=== PATIENT | female | born 1960 | race Caucasian/White ===

== ENCOUNTER 2016-10-26 09:26 | Emergency (ER) | payer OTHER ==
[~2016-10-26] VITALS: Ht 162.6 cm; Wt 79.4 kg
[~2016-10-26 09:26] MED LIST: AMBIEN5 MG PO; ECO81 PO; ENALAPRIL MALE2.5 MG PO; LANTI; LANTUS SOLOS100 U/M1 SC; LOR PO; LYRICA200 MG PO; MEDDP PO; METFORMIN HCL500 MG PO; METFORMIN1000 M1 PO; MORPHINE SULFAT15 MG PO; MSIR15 PO; NITROSTAT0.4 MG SL; VENTOLIN H0.09 MG/A1 INH; VICODIN ES1 TA1 PO; ZOC20 PO
[2016-10-26 10:31] LABS: BASOPHIL % 0.5 % (0-2); PLATELET COUNT 212 x10^3mcL (130-400); RED CELL DISTRIBUTION WIDTH 12.8 % (11.5-14.5)
[2016-10-26 10:42] LABS: UA SPECIFIC GRAVITY >=1.030 (1.005-1.035); microscopic required? YES; urine erythrocyte 3+ (NEGATIVE)
[2016-10-26 11:00] LABS: CALCIUM 9.6 mg/dL (8.5-10.1); CARBON DIOXIDE 30.9 mmol/L (21-32); CHLORIDE SERUM 105 mmol/L (98-107); CREATININE SERUM 0.8 mg/dL (0.6-1.0); GFR1 > 60 mL/min; GLUCOSE SERUM 178 mg/dL (74-106); POTASSIUM SERUM 4.3 mmol/L (3.5-5.1); SODIUM SERUM 141 mmol/L (136-145)
[2016-10-26 11:05] LABS: ALBUMIN 3.4 g/dL (3.4-5.0); ALKALINE PHOSPHATASE 93 U/L (46-116); ALT/SGPT 29 U/L (14-59); AMYLASE 54 U/L (25-115); AST/SGOT 16 U/L (15-37); BILIRUBIN TOTAL 0.44 mg/dL (0.20-1.00); LIPASE 309 IU/L (73-393); TOTAL PROTEIN, SERUM 7.3 g/dL (6.4-8.2)
[2016-10-26 13:43] VITALS: BP 124/71
== END 2016-10-26 13:44 | disposition home or self-care (01) ==
LOC: ED 09:26
PROVIDERS: Emergency Medicine
DX: N30.01 Acute cystitis with hematuria (principal); M79.7 Fibromyalgia; I10 Essential (primary) hypertension; E11.9 Type 2 diabetes mellitus without complications
CPT/HCPCS: J1885; J1956; J2405

== ENCOUNTER 2017-02-13 21:17 | Emergency (ER) | payer OTHER ==
[~2017-02-13] VITALS: Ht 162.6 cm; Wt 78.9 kg
[2017-02-13 22:53] LABS: BASOPHIL % 0.3 % (0-2); PLATELET COUNT 204 x10^3mcL (130-400); RED CELL DISTRIBUTION WIDTH 13.2 % (11.5-14.5)
[2017-02-13 23:00] LABS: ALKALINE PHOSPHATASE 115 U/L (46-116); ALT/SGPT 35 U/L (14-59); AST/SGOT 21 U/L (15-37); BILIRUBIN TOTAL 0.29 mg/dL (0.20-1.00); CALCIUM 9.6 mg/dL (8.5-10.1); CARBON DIOXIDE 28.8 mmol/L (21-32); CHLORIDE SERUM 100 mmol/L (98-107); GFR1 > 60 mL/min; LIPASE 174 IU/L (73-393); POTASSIUM SERUM 4.6 mmol/L (3.5-5.1); SODIUM SERUM 136 mmol/L (136-145); TOTAL PROTEIN, SERUM 7.4 g/dL (6.4-8.2)
[2017-02-13 23:01] LABS: ALBUMIN 3.3 g/dL (3.4-5.0)
[2017-02-13 23:02] LABS: GLUCOSE SERUM 466 mg/dL (74-106)
[2017-02-14 01:21] VITALS: BP 154/95
== END 2017-02-14 01:01 | disposition home or self-care (01) ==
LOC: ED 21:17
PROVIDERS: Emergency Medicine
DX: R07.89 Other chest pain (principal); K29.70 Gastritis, unspecified, without bleeding; I10 Essential (primary) hypertension; E11.65 Type 2 diabetes mellitus with hyperglycemia; Z90.49 Acquired absence of other specified parts of digestive tract; M79.7 Fibromyalgia; G89.29 Other chronic pain
CPT/HCPCS: 82962; 83880; J1815; J1885; J3490; J7030; Q0092

== ENCOUNTER 2017-03-21 23:20 | Emergency (ER) | payer OTHER ==
[2017-03-22 03:37] VITALS: BP 141/95
== END 2017-03-22 03:37 | disposition home or self-care (01) ==
LOC: ED 23:20
DX: N39.0 Urinary tract infection, site not specified (principal); I11.0 Hypertensive heart disease with heart failure; I50.9 Heart failure, unspecified; E11.9 Type 2 diabetes mellitus without complications; Z79.4 Long term (current) use of insulin; Z79.84 Long term (current) use of oral hypoglycemic drugs
CPT/HCPCS: J1885

== ENCOUNTER 2017-04-16 01:10 | Emergency (ER) | payer OTHER ==
[2017-04-16 01:52] LABS: BASOPHIL % 1.8 % (0-2); PLATELET COUNT 222 x10^3mcL (130-400); RED CELL DISTRIBUTION WIDTH 12.1 % (11.5-14.5)
[2017-04-16 01:53] LABS: CALCIUM 8.9 mg/dL (8.5-10.1); CARBON DIOXIDE 31.5 mmol/L (21-32); CHLORIDE SERUM 97 mmol/L (98-107); CREATININE SERUM 0.8 mg/dL (0.6-1.0); GFR1 > 60 mL/min; GLUCOSE SERUM 310 mg/dL (74-106); SODIUM SERUM 135 mmol/L (136-145)
[2017-04-16 02:59] LABS: microscopic required? NO
[2017-04-16 03:14] LABS: UA SPECIFIC GRAVITY <=1.005 (1.005-1.035); urine erythrocyte NEGATIVE (NEGATIVE)
[2017-04-16 04:07] VITALS: BP 166/93
== END 2017-04-16 04:07 | disposition home or self-care (01) ==
LOC: ED 01:10
PROVIDERS: Emergency Medicine
DX: E86.0 Dehydration (principal); K11.7 Disturbances of salivary secretion; E11.9 Type 2 diabetes mellitus without complications; I11.0 Hypertensive heart disease with heart failure; I50.9 Heart failure, unspecified; M79.7 Fibromyalgia; Z79.4 Long term (current) use of insulin; Z79.84 Long term (current) use of oral hypoglycemic drugs; Z90.49 Acquired absence of other specified parts of digestive tract
CPT/HCPCS: J7030

== ENCOUNTER 2017-08-20 12:38 | Emergency (ER) | payer OTHER ==
[~2017-08-20] VITALS: Ht 162.6 cm; Wt 75.7 kg
[2017-08-20 13:54] VITALS: Ht 162.6 cm; Wt 75.7 kg
[2017-08-20 17:21] VITALS: BP 144/86
== END 2017-08-20 17:21 | disposition home or self-care (01) ==
LOC: ED 12:38
DX: S46.911A Strain of unspecified muscle, fascia and tendon at shoulder and upper arm level, right arm, initial encounter (principal); M54.12 Radiculopathy, cervical region; E11.9 Type 2 diabetes mellitus without complications; I11.0 Hypertensive heart disease with heart failure; I50.9 Heart failure, unspecified; M79.7 Fibromyalgia; Z90.49 Acquired absence of other specified parts of digestive tract; X58.XXXA Exposure to other specified factors, initial encounter; Y93.89 Activity, other specified; Y92.89 Other specified places as the place of occurrence of the external cause; Y99.8 Other external cause status

== ENCOUNTER 2018-03-17 06:52 | Inpatient (IN) | payer OTHER ==
[~2018-03-17] VITALS: Ht 162.6 cm; Wt 82.7 kg
[2018-03-17 08:39] LABS: BASOPHIL % 0.2 % (0-2); PLATELET COUNT 284 x10^3mcL (130-400); RED CELL DISTRIBUTION WIDTH 13.4 % (11.5-14.5)
[2018-03-17 09:00] LABS: CALCIUM 9.6 mg/dL (8.5-10.1); CARBON DIOXIDE 27.6 mmol/L (21-32); CHLORIDE SERUM 105 mmol/L (98-107); GFR1 > 60 mL/min; GLUCOSE SERUM 175 mg/dL (74-106); POTASSIUM SERUM 4.6 mmol/L (3.5-5.1); SODIUM SERUM 142 mmol/L (136-145)
[2018-03-17 09:04] LABS: ALBUMIN 3.4 g/dL (3.4-5.0); ALKALINE PHOSPHATASE 88 U/L (46-116); ALT/SGPT 26 U/L (14-59); AST/SGOT 17 U/L (15-37); BILIRUBIN TOTAL 0.24 mg/dL (0.20-1.00); TOTAL PROTEIN, SERUM 8.2 g/dL (6.4-8.2)
[2018-03-17 09:19] LABS: microscopic required? NO
[2018-03-17 09:24] LABS: urine erythrocyte NEGATIVE (NEGATIVE)
[2018-03-17] MEDS ORDERED: LANTUS SOLOS100 U/M1 SC (09:36)
[2018-03-17] MEDS ORDERED: NORCO1 TA2 PO (09:37)
[2018-03-17 10:32] LABS: FREE T4 1.11 ng/dL (0.76-1.46); FREE THYROXINE INDEX 2.9 ug/dL (1.4-4.5); T4(THYROXINE) 9.2 ug/dL (4.7-13.3)
[2018-03-17 10:45] LABS: CHOLESTEROL/HDL RATIO 4.9; PHOSPHOROUS 4.1 mg/dL (2.5-4.9)
[2018-03-17 10:54] LABS: T3 TOTAL 1.02 ng/mL
[2018-03-17 11:29] VITALS: Ht 162.6 cm; Wt 82.7 kg
[2018-03-17 12:08] VITALS: BP 177/94
[2018-03-17 13:02] VITALS: BP 183/93
[2018-03-17 13:18] LABS: AMPHETAMINE QUAL UR NONE DETECTED (See below)
[2018-03-17 16:34] VITALS: BP 154/80
[2018-03-17 20:55] VITALS: BP 184/87
[2018-03-17 22:19] LABS: BASOPHIL % 0.1 % (0-2); PLATELET COUNT 289 x10^3mcL (130-400); RED CELL DISTRIBUTION WIDTH 13.2 % (11.5-14.5)
[2018-03-17 22:48] VITALS: BP 171/97
[2018-03-18 00:52] VITALS: BP 116/58
[2018-03-18 06:15] VITALS: BP 151/79
[2018-03-18 09:55] VITALS: BP 111/53
[2018-03-18 13:18] VITALS: BP 130/73
[2018-03-18 14:53] LABS: BASOPHIL % 0.6 % (0-2); PLATELET COUNT 271 x10^3mcL (130-400); RED CELL DISTRIBUTION WIDTH 12.9 % (11.5-14.5)
[2018-03-18 14:55] LABS: CALCIUM 8.6 mg/dL (8.5-10.1); CARBON DIOXIDE 32.7 mmol/L (21-32); CREATININE SERUM 1.1 mg/dL (0.6-1.0); POTASSIUM SERUM 4.1 mmol/L (3.5-5.1)
[2018-03-18 16:49] VITALS: BP 168/87
[2018-03-18 21:53] VITALS: BP 155/89
[2018-03-19 05:30] VITALS: BP 139/84
[2018-03-19 07:13] LABS: BASOPHIL % 0.5 % (0-2); PLATELET COUNT 258 x10^3mcL (130-400); RED CELL DISTRIBUTION WIDTH 12.8 % (11.5-14.5)
[2018-03-19 07:58] LABS: CALCIUM 8.7 mg/dL (8.5-10.1); CARBON DIOXIDE 29.1 mmol/L (21-32); CREATININE SERUM 1.1 mg/dL (0.6-1.0); MAGNESIUM 1.8 mg/dL (1.8-2.4); PHOSPHOROUS 3.5 mg/dL (2.5-4.9); POTASSIUM SERUM 4.3 mmol/L (3.5-5.1)
[2018-03-19 09:40] VITALS: BP 164/85
[2018-03-19 17:30] VITALS: BP 175/92
[2018-03-19 20:26] VITALS: BP 167/85
[2018-03-20 05:14] VITALS: BP 167/71
[2018-03-20 07:25] LABS: BASOPHIL % 0.2 % (0-2); PLATELET COUNT 239 x10^3mcL (130-400); RED CELL DISTRIBUTION WIDTH 12.8 % (11.5-14.5)
[2018-03-20 07:55] LABS: CALCIUM 8.8 mg/dL (8.5-10.1); CARBON DIOXIDE 26.3 mmol/L (21-32); CREATININE SERUM 3.3 mg/dL (0.6-1.0); POTASSIUM SERUM 4.1 mmol/L (3.5-5.1)
[2018-03-20 09:15] VITALS: BP 182/84
[2018-03-20 11:11] LABS: BILIRUBIN DIRECT 0.22 mg/dL (0.0-0.2); BILIRUBIN TOTAL 0.7 mg/dL (0.20-1.00); TOTAL PROTEIN, SERUM 7.4 g/dL (6.4-8.2)
[2018-03-20 11:12] LABS: ALBUMIN 2.8 g/dL (3.4-5.0)
[2018-03-20 16:18] VITALS: BP 147/81
[2018-03-20 19:01] LABS: UA SPECIFIC GRAVITY <=1.005 (1.005-1.035); microscopic required? YES; urine erythrocyte 1+ (NEGATIVE)
[2018-03-20 20:59] VITALS: BP 160/71
[2018-03-21 05:26] VITALS: BP 130/67
[2018-03-21 06:44] LABS: BASOPHIL % 0.3 % (0-2); PLATELET COUNT 246 x10^3mcL (130-400); RED CELL DISTRIBUTION WIDTH 12.9 % (11.5-14.5)
[2018-03-21 06:53] LABS: CALCIUM 8.8 mg/dL (8.5-10.1); POTASSIUM SERUM 3.8 mmol/L (3.5-5.1)
[2018-03-21 06:55] LABS: PHOSPHOROUS 4.4 mg/dL (2.5-4.9)
[2018-03-21 06:59] LABS: CREATININE SERUM 4.7 mg/dL (0.6-1.0)
[2018-03-21 09:36] VITALS: BP 170/88
[2018-03-21 16:36] VITALS: BP 161/79
[2018-03-21 20:11] VITALS: BP 167/77
[2018-03-22 05:33] VITALS: BP 149/72
[2018-03-22 06:11] LABS: CALCIUM 8.9 mg/dL (8.5-10.1); PHOSPHOROUS 4.5 mg/dL (2.5-4.9); POTASSIUM SERUM 4.1 mmol/L (3.5-5.1)
[2018-03-22 06:14] LABS: CREATININE SERUM 5.1 mg/dL (0.6-1.0)
[2018-03-22 06:20] LABS: BASOPHIL % 0.3 % (0-2); PLATELET COUNT 256 x10^3mcL (130-400); RED CELL DISTRIBUTION WIDTH 12.7 % (11.5-14.5)
[2018-03-22 09:19] VITALS: BP 175/91
[2018-03-22 12:34] LABS: microalbumin:creatinine ratio 240.6 (0.0-30.0)
[2018-03-22 16:59] VITALS: BP 176/93
[2018-03-22 18:57] VITALS: BP 161/93
[2018-03-22 20:10] VITALS: BP 161/85
[2018-03-23 06:41] LABS: PHOSPHOROUS 4.6 mg/dL (2.5-4.9); POTASSIUM SERUM 4.1 mmol/L (3.5-5.1)
[2018-03-23 06:53] LABS: CREATININE SERUM 5.1 mg/dL (0.6-1.0)
[2018-03-23 06:54] LABS: BASOPHIL % 0.3 % (0-2); PLATELET COUNT 262 x10^3mcL (130-400)
[2018-03-23 07:03] VITALS: BP 167/84
[2018-03-23 09:01] VITALS: BP 154/79
[2018-03-23 12:47] VITALS: BP 148/77
[2018-03-23 17:17] VITALS: BP 151/71
[2018-03-23 20:23] VITALS: BP 153/72
[2018-03-24 05:42] LABS: CALCIUM 8.8 mg/dL (8.5-10.1); CARBON DIOXIDE 21.6 mmol/L (21-32)
[2018-03-24 05:43] VITALS: BP 140/68
[2018-03-24 05:44] LABS: CREATININE SERUM 4.6 mg/dL (0.6-1.0)
[2018-03-24 07:48] LABS: BASOPHIL % 0.3 % (0-2); PLATELET COUNT 270 x10^3mcL (130-400); RED CELL DISTRIBUTION WIDTH 13.5 % (11.5-14.5)
[2018-03-24 09:57] VITALS: BP 156/71
[2018-03-24] MEDS ORDERED: APR25 PO (10:24)
[2018-03-24] MEDS ORDERED: LAC PO (10:24)
[2018-03-24] MEDS ORDERED: METOPROLOL TART25 M1 PO (10:24)
[2018-03-24] MEDS ORDERED: NOR10 PO (10:24)
[2018-03-24] MEDS ORDERED: FLA500 PO (10:25)
[2018-03-24] MEDS ORDERED: LEVAQUIN500 M1 PO (10:25)
[2018-03-24] MEDS ORDERED: VANCOCIN125 MG PO (10:26)
[2018-03-24 11:23] VITALS: BP 156/71
== END 2018-03-24 12:40 | disposition home or self-care (01) | DRG 853 ==
LOC: ED 06:52 → DU 09:27 → MU 09:27 → DU 11:21 → MU 03-18 09:35 → DU 03-23 04:52 → MU 03-23 18:00
PROVIDERS: Anesthesiology; Emergency Medicine; Family Medicine; Internal Medicine; Internal Medicine Nephrology; Nutritionist Nutrition, Education; Podiatrist Foot & Ankle Surgery
PROC: 0JBR0ZZ Excision of Left Foot Subcutaneous Tissue and Fascia, Open Approach (ICD-10-PCS; 2018-03-17)
PROC: 0Y6U0Z0 Detachment at Left 3rd Toe, Complete, Open Approach (ICD-10-PCS; principal; 2018-03-18 08:00)
DX: A41.9 Sepsis, unspecified organism (principal); N17.0 Acute kidney failure with tubular necrosis; E11.52 Type 2 diabetes mellitus with diabetic peripheral angiopathy with gangrene; B02.29 Other postherpetic nervous system involvement; D68.69 Other thrombophilia; N39.0 Urinary tract infection, site not specified; J98.11 Atelectasis; E11.621 Type 2 diabetes mellitus with foot ulcer; L03.032 Cellulitis of left toe; E11.65 Type 2 diabetes mellitus with hyperglycemia; E11.42 Type 2 diabetes mellitus with diabetic polyneuropathy; L97.521 Non-pressure chronic ulcer of other part of left foot limited to breakdown of skin; M79.7 Fibromyalgia; E78.5 Hyperlipidemia, unspecified; E66.9 Obesity, unspecified; I10 Essential (primary) hypertension; Z68.30 Body mass index [BMI] 30.0-30.9, adult; Z79.4 Long term (current) use of insulin; Z79.84 Long term (current) use of oral hypoglycemic drugs
CPT/HCPCS: 82962; 83880; 84439; 97110-GP; 97116-GP; 97530-GP; 97535-GP; C1760; C1769; C1887; C1894; C9113; J0696; J1956; J2270; J2405; J2543; J2704; J3010; J3370; J3490; J7030; J7050; Q0092; Q0162

== ENCOUNTER 2018-04-01 23:38 | Emergency (ER) | payer OTHER ==
[~2018-04-01] VITALS: Ht 162.6 cm; Wt 79.4 kg
[~2018-04-01 23:38] MED LIST changes: +APR25 PO; +FLA500 PO; +LAC PO; +LEVAQUIN500 M1 PO; +METOPROLOL TART25 M1 PO; +NOR10 PO; +NORCO1 TA2 PO; +VANCOCIN125 MG PO
[2018-04-01 23:44] VITALS: Ht 162.6 cm; Wt 79.4 kg
[2018-04-02 01:15] VITALS: BP 203/96
== END 2018-04-02 01:15 | disposition home or self-care (01) ==
LOC: ED 23:38
DX: S46.911D Strain of unspecified muscle, fascia and tendon at shoulder and upper arm level, right arm, subsequent encounter (principal); I11.0 Hypertensive heart disease with heart failure; I50.9 Heart failure, unspecified; E11.9 Type 2 diabetes mellitus without complications; M79.7 Fibromyalgia; G90.09 Other idiopathic peripheral autonomic neuropathy; Z90.49 Acquired absence of other specified parts of digestive tract; W01.0XXD Fall on same level from slipping, tripping and stumbling without subsequent striking against object, subsequent encounter
CPT/HCPCS: Q0092

== ENCOUNTER 2018-04-16 10:19 | Emergency (ER) | payer OTHER ==
[~2018-04-16] VITALS: Ht 162.6 cm; Wt 79.8 kg
[2018-04-16 10:25] VITALS: Ht 162.6 cm; Wt 79.8 kg
[2018-04-16 11:08] LABS: BASOPHIL % 0.6 % (0-2); PLATELET COUNT 273 x10^3mcL (130-400); RED CELL DISTRIBUTION WIDTH 12.9 % (11.5-14.5)
[2018-04-16 11:19] LABS: CALCIUM 10.1 mg/dL (8.5-10.1); CARBON DIOXIDE 31.9 mmol/L (21-32); CREATININE SERUM 1.6 mg/dL (0.6-1.0); POTASSIUM SERUM 4.4 mmol/L (3.5-5.1)
[2018-04-16 11:23] LABS: ALBUMIN 3.8 g/dL (3.4-5.0); BILIRUBIN TOTAL 0.4 mg/dL (0.20-1.00)
[2018-04-16 11:25] LABS: TOTAL PROTEIN, SERUM 9.4 g/dL (6.4-8.2)
[2018-04-16 12:38] LABS: microscopic required? YES; urine erythrocyte NEGATIVE (NEGATIVE)
[2018-04-16 14:45] VITALS: BP 141/89
== END 2018-04-16 14:45 | disposition left against medical advice (07) ==
LOC: ED 10:19 → MU 12:45 → ED 14:45
PROVIDERS: Emergency Medicine
DX: R53.1 Weakness (principal); E11.22 Type 2 diabetes mellitus with diabetic chronic kidney disease; I12.9 Hypertensive chronic kidney disease with stage 1 through stage 4 chronic kidney disease, or unspecified chronic kidney disease; N18.9 Chronic kidney disease, unspecified; I50.9 Heart failure, unspecified; E11.40 Type 2 diabetes mellitus with diabetic neuropathy, unspecified
CPT/HCPCS: J2060; J2405; J3490; J7030; Q0092

== ENCOUNTER 2018-11-20 15:09 | Inpatient (IN) | payer OTHER ==
[~2018-11-20] VITALS: Ht 162.6 cm; Wt 81.6 kg
[2018-11-20 15:49] VITALS: Ht 162.6 cm; Wt 81.6 kg
--- NOTE | 2018-11-20 16:33 | NUR ---
TO BED 12 VIA WHEELCHAIR. PT HERE FOR EVAL FOR NON-HEALING OPEN WOUND @ FOOT, AND GANGRENE @ R 5TH TOE. PT STATES NON-HEALING OPEN WOUND TO R FOOT SINCE 10/24/18.
--- NOTE | 2018-11-20 16:34 | NUR ---
PT SEEN BY DR. MONTES.
--- NOTE | 2018-11-20 16:38 | NUR ---
PAID SEARCH MARKETING STRATEGIST AT BEDSIDE.
[2018-11-20 16:56] LABS: BASOPHIL % 0.2 % (0-2); PLATELET COUNT 321 x10^3mcL (130-400); RED CELL DISTRIBUTION WIDTH 12.8 % (11.5-14.5)
[2018-11-20 17:16] LABS: CALCIUM 9.2 mg/dL (8.5-10.1); CARBON DIOXIDE 27.9 mmol/L (21-32); CREATININE SERUM 1.1 mg/dL (0.6-1.0); POTASSIUM SERUM 3.8 mmol/L (3.5-5.1)
[2018-11-20 17:28] LABS: BILIRUBIN TOTAL 0.49 mg/dL (0.20-1.00); T4(THYROXINE) 9.4 ug/dL (4.7-13.3)
[2018-11-20 17:30] LABS: ALBUMIN 2.9 g/dL (3.4-5.0); TOTAL PROTEIN, SERUM 8.3 g/dL (6.4-8.2)
[2018-11-20] MEDS ORDERED: LIPI10 PO (17:34)
[2018-11-20] MEDS ORDERED: ENALAPRIL MALEAT5 MG PO (17:35)
[2018-11-20] MEDS ORDERED: VITAMIN D50000 I4 PO (17:35)
[2018-11-20] MEDS ORDERED: LANTUS SOLOS100 U/M1 (17:37)
[2018-11-20] MEDS ORDERED: METFORMIN HCL500 MG PO (17:40)
[2018-11-20] MEDS ORDERED: APAP/HYDROCODON1 T13 PO (17:40)
--- NOTE | 2018-11-20 17:44 | NUR ---
PT EATING DINNER, AWAKE, ALERT, BS=64 AT THIS TIME. MD JYOTI HARPER.
--- NOTE | 2018-11-20 17:55 | NUR ---
MOLDING ENGINEER AT BEDSIDE AND HAD PT SIGN CONSENT FOR SURGERY, WITNESSED PT'S SIGNATURE.
--- NOTE | 2018-11-20 18:27 | NUR ---
REPORT GIVEN TO GIDEON GOMEZ. PT AWAKE, ALERT, STATES NO MORE PAIN AT THIS TIME. NSR ON PICTURE FRAMER.
[2018-11-20 19:01] VITALS: BP 181/88
--- NOTE | 2018-11-20 19:37 | NUR ---
RECEIVED PT FROM ER. PT ADMIT FOR RIGHT FIFTH TOE GANGRENE, PT IS A/O X4, VERBAL RESPONSIVE, ABLE TO TELL WHAT SHE NEEDS. LUNG SOUND CLEAR BIALTERAL, NO COUHG, NO SOB, PO2 100% IN ROOM AIR, PT DENY ANY CHEST PAIN OR DISCOMFORT, BOWEL SOUND PRESENT ALL 4 QUADRANTS, NO DISTENTION, NO TENDER. PEDAL PULSE PRESENT BOTH FEET, RIGHT FIFTH TOE BLACK DISCOLORATION AND SOLE UNDER FIFTH TOE OPEN WOUND, IV AT LEFT FA, NO LEAKING, NO INFITLRATION. ALL ADLS ASSIST, ALL NEED MET, CALL LIGHT IN REACH, WILL CONTINUE TO MONITOR.
--- NOTE | 2018-11-20 20:00 | NUR ---
PT IS A/O x4. MED SURG. DENIES ANY CHEST PAIN OR PRESSURE. PULSES ARE PRESENT. NO EDEMA NOTED. DRESSING ON R FOOT IS CLEAN AND INTACT. NO DRAINAGE NOTED. LUNGS CLEAR IN ALL FEILDS. ON RA, DENIES ANY SOB. EQUAL CHEST RISE AND FALL. BOWEL SOUNDS PRESENT x4. DENIES ANY ABD DISTRESS. DENIES PAIN AT THIS TIME. IV ON LFA, INTACT AND PATENT. FAMILY AT BEDSIDE. BED AT LOWEST SETTING. CALL LIGHT WITHIN REACH. WILL CONTINUE TO MONTIOR.
--- NOTE | 2018-11-21 02:25 | NUR ---
PT IS RESTING IN BED. C/O PAIN 5/10 ON R FOOT. STATES IT PULSES AND NON RADITATING. WILL GIVE PRN NORCO PER EMAR. WILL CONTINUE TO MONITOR.
[2018-11-21 02:34] LABS: UA SPECIFIC GRAVITY 1.015 (1.005-1.035)
[2018-11-21 02:35] LABS: microscopic required? YES; urine erythrocyte TRACE (NEGATIVE)
[2018-11-21 06:03] VITALS: BP 148/79
--- NOTE | 2018-11-21 06:52 | NUR ---
PT IS RESTING IN BED WITH BOTH EYES CLOSED. NO SIGN OF DISTRESS NOTED. NO ACUTE EVENT OCCURED AT NIGHT. PT BEEN NPO SINCE MIDNIGHT. CHECK LIST HAS BEEN STARTED. BED IS AT LOWEST SETTING. CALL LIGHT WITHIN REACH. WILL ENDORSE TO AM NURSE.
[2018-11-21 07:08] LABS: CARBON DIOXIDE 26.1 mmol/L (21-32); CREATININE SERUM 1.3 mg/dL (0.6-1.0); MAGNESIUM 1.6 mg/dL (1.8-2.4); PHOSPHOROUS 3.9 mg/dL (2.5-4.9); POTASSIUM SERUM 4.5 mmol/L (3.5-5.1)
[2018-11-21 07:24] LABS: BASOPHIL % 0.2 % (0-2); PLATELET COUNT 287 x10^3mcL (130-400); RED CELL DISTRIBUTION WIDTH 13.1 % (11.5-14.5)
--- NOTE | 2018-11-21 08:23 | NUR ---
AAO TIMES 4. LUNGS CTA. NO SOB. O2 SAT ON RA 96%. BS'S ACTIVE TIMES 4. NPO. PERIPHERAL PULSES PALPABLE. BRANTLEY STRONG. RIGHT LATERAL TOP OF FOOT WITH SLIGHT EDEMA AND ERYTHEMA. IV SITE CDI. COOPERATIVE AND PLEASANT. NO C/O PAIN.
[2018-11-21 09:29] VITALS: BP 144/76
[2018-11-21 17:05] VITALS: BP 118/56
--- NOTE | 2018-11-21 17:54 | NUR ---
AAO TIMES 4. MED SURG. DRESSING TO RLE CDI. COOPERATIVE. IV SITE CDI. NO C/O PAIN AT THIS TIME. NO SOB. FAMILY AT BEDSIDE MOST OF DAY.
--- NOTE | 2018-11-21 19:30 | NUR ---
PT IS A/O X4. ON MED SURG. DENIES ANY CHEST PAIN OR PRESSURE. PULSES ARE PRESENT. SLIGHT EDEMA NOTED ON R FOOT D/T POST OP 5TH RIGHT TOE AMPUTATION. FOOT ELEVATED ON A PILLOW. LUNGS CLEAR IN ALL FEILDS. NO SIGN OF RESP DISTRESS. EQUAL CHEST RISE AND FALL. ON RA. BOWEL SOUNDS PRESENT x4. DENIES ANY ABD DISTRESS. DRESSING ON R FOOT IS CLEAN AND INTACT. NO DRAINAGE NOTED. DENIES ANY PAIN. IV ON LFA INTACT AND PATENT. NO SIGN OF INFILTRATION OR IRRITATION NOTED. BED IS AT LOWEST SETTING. CALL LIGHT WITHIN REACH. PARTNER AT BEDSIDE. WILL CONTINUE TO MONTIOR.
[2018-11-21 21:34] VITALS: BP 173/85
--- NOTE | 2018-11-22 01:07 | NUR ---
PT IS RESTING IN BED. ASSISTED PT TO THE BATHROOM. PT WALKED ON HER R HEEL TO THE BATHROOM AND BACK TO THE BED, TOLERATED THE WALK WELL. PT DENIES ANY PAIN. CALL LIGHT WITHIN REACH. WILL CONTINUE TO MONITOR.
[2018-11-22 06:08] VITALS: BP 176/89
[2018-11-22 06:23] LABS: BASOPHIL % 0.1 % (0-2); PLATELET COUNT 297 x10^3mcL (130-400); RED CELL DISTRIBUTION WIDTH 13.1 % (11.5-14.5)
[2018-11-22 06:37] LABS: CALCIUM 8.8 mg/dL (8.5-10.1); CARBON DIOXIDE 26.3 mmol/L (21-32); CREATININE SERUM 1.2 mg/dL (0.6-1.0); POTASSIUM SERUM 4.7 mmol/L (3.5-5.1)
--- NOTE | 2018-11-22 06:45 | NUR ---
PT IS RESTING IN BED. DENIES ANY PAIN OR DISTRESS. NO ACUTE EVENT OCCURED AT NIGHT. DRESSING ON R FOOT IS CLEAN AND INTACT. BED IS AT LOWEST SETTING. CALL LIGHT WITHIN REACH. WILL ENDORSE TO AM NURSE.
--- NOTE | 2018-11-22 07:50 | NUR ---
AWAKE ALERT AND ORIENTED.DENIES ANY PAIN AT THIS TIME. S/P RT. 5TH TOE AMPUTEE 11/21 .DRESSING CDI .ABLE TO GET OUT IN BSC VOIDING WELL.CONT,. IV FLUIDS AND IV ANTIBIOTIC ORDERED.WILL CONT. PLAN OF CARE.
[2018-11-22 08:39] VITALS: BP 110/68
--- NOTE | 2018-11-22 09:00 | NUR ---
ANTOLIN NURSE PRACTITIONER HERE AND SEEN THE PT. W/ ORDERS OK PT. TO GO HOME TODAY PT. MADE AWARE AND AWAITING FOR RIDE.
[2018-11-22] MEDS ORDERED: KEFLEX500 M1 PO (10:00)
[2018-11-22 13:02] VITALS: BP 110/68
--- NOTE | 2018-11-22 13:20 | NUR ---
PT. C/O PAIN IN FOOT MEDICATED FOR PAIN ORDERED LEMOYNE. MADE PT. COMFORTABLE IN BED.,
--- NOTE | 2018-11-22 13:58 | NUR ---
PT. WENT HOME W/ STABLE CONDITION PER W/C ACC. W/ HER .DISCHARGED INSTRUCTIONS AND PRESCRIPTIONS GIVEN AND DISCUSED TO PT. AND VERBALIZED UNDERSTANDING OF INSTRUCTION GIVEN NO ACUTE DISTRESS NOTED.ESCORTED BY MARISSA IN THE LOBBY.
== END 2018-11-22 13:57 | disposition home or self-care (01) | DRG 240 ==
LOC: ED 15:09 → MU 16:10
PROVIDERS: Emergency Medicine; Podiatrist Foot & Ankle Surgery; ADMIT Internal Medicine
PROC: 0Y6M0ZF Detachment at Right Foot, Partial 5th Ray, Open Approach (ICD-10-PCS; principal; 2018-11-21 12:00)
DX: E10.52 Type 1 diabetes mellitus with diabetic peripheral angiopathy with gangrene (principal); L97.411 Non-pressure chronic ulcer of right heel and midfoot limited to breakdown of skin; I96 Gangrene, not elsewhere classified; M86.9 Osteomyelitis, unspecified; B02.29 Other postherpetic nervous system involvement; M86.171 Other acute osteomyelitis, right ankle and foot; E10.621 Type 1 diabetes mellitus with foot ulcer; L03.031 Cellulitis of right toe; E10.69 Type 1 diabetes mellitus with other specified complication; E10.42 Type 1 diabetes mellitus with diabetic polyneuropathy; E10.319 Type 1 diabetes mellitus with unspecified diabetic retinopathy without macular edema; E10.65 Type 1 diabetes mellitus with hyperglycemia; B35.1 Tinea unguium; I10 Essential (primary) hypertension; M79.7 Fibromyalgia; Z79.4 Long term (current) use of insulin; Z79.84 Long term (current) use of oral hypoglycemic drugs
CPT/HCPCS: 82962; 83880; C9113; J0295; J2270; J2543; J3010; J3370; J3475; J3490; J7030; Q0092

== ENCOUNTER 2019-01-07 10:23 | Inpatient (IN) | payer OTHER ==
[~2019-01-07] VITALS: Ht 157.5 cm; Wt 81.6 kg
[~2019-01-07 10:23] MED LIST changes: +APAP/HYDROCODON1 T13 PO; +ENALAPRIL MALEAT5 MG PO; +KEFLEX500 M1 PO; +LANTUS SOLOS100 U/M1; +LIPI10 PO; +VITAMIN D50000 I4 PO
[2019-01-07] MEDS ORDERED: LANTUS100 U/ML SC (11:17)
[2019-01-07] MEDS ORDERED: MOT800 PO (11:18)
[2019-01-07] MEDS ORDERED: NORCO1 TA2 PO (11:18)
[2019-01-07 12:20] LABS: BASOPHIL % 0.3 % (0-2); PLATELET COUNT 360 x10^3mcL (130-400)
[2019-01-07 12:30] LABS: CALCIUM 9.8 mg/dL (8.5-10.1); CREATININE SERUM 1.5 mg/dL (0.6-1.0)
[2019-01-07 12:35] LABS: BILIRUBIN TOTAL 0.27 mg/dL (0.20-1.00); TOTAL PROTEIN, SERUM 8.9 g/dL (6.4-8.2)
[2019-01-07 13:27] LABS: MAGNESIUM 1.8 mg/dL (1.8-2.4)
[2019-01-07 14:30] VITALS: BP 116/74
[2019-01-07 21:01] VITALS: BP 130/72
[2019-01-08 05:26] VITALS: BP 171/89
[2019-01-08 06:25] LABS: PLATELET COUNT 337 x10^3mcL (130-400)
[2019-01-08 06:37] LABS: CALCIUM 9.7 mg/dL (8.5-10.1); CREATININE SERUM 1.3 mg/dL (0.6-1.0); POTASSIUM SERUM 5.3 mmol/L (3.5-5.1)
[2019-01-08 06:43] LABS: BASOPHIL % 0 % (0-2)
[2019-01-08 07:58] VITALS: BP 164/79
[2019-01-08 08:20] VITALS: BP 130/71
[2019-01-08 14:19] LABS: microscopic required? YES; urine erythrocyte NEGATIVE (NEGATIVE)
[2019-01-08 16:31] VITALS: BP 140/73
[2019-01-08 19:53] VITALS: BP 177/93
[2019-01-08 22:00] VITALS: BP 145/72
[2019-01-09] VITALS (7 sets, daily range): BP systolic 131–191; BP diastolic 67–100
[2019-01-09 07:15] LABS: BASOPHIL % 0.5 % (0-2); PLATELET COUNT 299 x10^3mcL (130-400); RED CELL DISTRIBUTION WIDTH 14.6 % (11.5-14.5)
[2019-01-09 07:31] LABS: CALCIUM 9.9 mg/dL (8.5-10.1); CARBON DIOXIDE 26.1 mmol/L (21-32); CREATININE SERUM 1.2 mg/dL (0.6-1.0)
[2019-01-10 00:30] VITALS: BP 175/82
[2019-01-10 00:36] VITALS: Ht 157.5 cm; Wt 81.6 kg
[2019-01-10 01:56] VITALS: BP 140/72
[2019-01-10 04:37] VITALS: BP 167/87
[2019-01-10 07:07] LABS: BASOPHIL % 0.5 % (0-2); PLATELET COUNT 302 x10^3mcL (130-400); RED CELL DISTRIBUTION WIDTH 14.1 % (11.5-14.5)
[2019-01-10 07:47] LABS: CALCIUM 9.7 mg/dL (8.5-10.1); CARBON DIOXIDE 27.6 mmol/L (21-32); CREATININE SERUM 1.1 mg/dL (0.6-1.0); POTASSIUM SERUM 4.2 mmol/L (3.5-5.1)
[2019-01-10 09:09] VITALS: BP 155/72
[2019-01-10 15:31] LABS: BASOPHIL % 0.1 % (0-2); PLATELET COUNT 294 x10^3mcL (130-400); RED CELL DISTRIBUTION WIDTH 14.1 % (11.5-14.5)
[2019-01-10 17:11] VITALS: BP 117/86
[2019-01-10 20:55] VITALS: BP 147/84
[2019-01-11 05:09] VITALS: BP 134/73
[2019-01-11 07:05] LABS: CALCIUM 9.6 mg/dL (8.5-10.1); CARBON DIOXIDE 24.8 mmol/L (21-32); CREATININE SERUM 1.6 mg/dL (0.6-1.0); POTASSIUM SERUM 4.4 mmol/L (3.5-5.1)
[2019-01-11 07:32] LABS: BASOPHIL % 0.2 % (0-2); PLATELET COUNT 278 x10^3mcL (130-400); RED CELL DISTRIBUTION WIDTH 14.3 % (11.5-14.5)
[2019-01-11 09:38] VITALS: BP 119/71
[2019-01-11 17:41] VITALS: BP 133/68
[2019-01-11 20:27] VITALS: BP 113/62
[2019-01-12 05:39] VITALS: BP 159/82
[2019-01-12 08:34] LABS: BASOPHIL % 0.3 % (0-2); PLATELET COUNT 271 x10^3mcL (130-400)
[2019-01-12 08:39] LABS: RED CELL DISTRIBUTION WIDTH 14.8 % (11.5-14.5)
[2019-01-12 08:46] LABS: CALCIUM 9.2 mg/dL (8.5-10.1); CREATININE SERUM 1.7 mg/dL (0.6-1.0)
[2019-01-12 09:45] VITALS: BP 120/64
[2019-01-12 17:28] VITALS: BP 145/80
[2019-01-12 22:57] VITALS: BP 174/87
[2019-01-13 06:38] VITALS: BP 158/77
[2019-01-13 07:40] LABS: BASOPHIL % 0.3 % (0-2); PLATELET COUNT 272 x10^3mcL (130-400)
[2019-01-13 08:01] VITALS: BP 143/71
[2019-01-13 08:15] LABS: RED CELL DISTRIBUTION WIDTH 14.7 % (11.5-14.5)
[2019-01-13 08:20] LABS: CALCIUM 9.5 mg/dL (8.5-10.1); CARBON DIOXIDE 24.5 mmol/L (21-32); CREATININE SERUM 1.7 mg/dL (0.6-1.0); POTASSIUM SERUM 4.4 mmol/L (3.5-5.1)
[2019-01-13] MEDS ORDERED: BACDS PO (12:57)
[2019-01-13 13:57] VITALS: BP 143/71
== END 2019-01-13 15:00 | disposition home or self-care (01) | DRG 474 ==
LOC: ED 10:23 → MU 12:31
PROVIDERS: Emergency Medicine; Nutritionist Nutrition, Education; ADMIT General Practice
PROC: 0Y6M0ZD Detachment at Right Foot, Partial 4th Ray, Open Approach (ICD-10-PCS; 2019-01-10)
PROC: 0Y6M0ZF Detachment at Right Foot, Partial 5th Ray, Open Approach (ICD-10-PCS; 2019-01-10)
PROC: 0L8P0ZZ Division of Left Lower Leg Tendon, Open Approach (ICD-10-PCS; 2019-01-10)
PROC: 0Y6M0ZC Detachment at Right Foot, Partial 3rd Ray, Open Approach (ICD-10-PCS; principal; 2019-01-10 12:00)
DX: T87.43 Infection of amputation stump, right lower extremity (principal); N17.0 Acute kidney failure with tubular necrosis; M86.9 Osteomyelitis, unspecified; E44.0 Moderate protein-calorie malnutrition; T87.81 Dehiscence of amputation stump; E11.42 Type 2 diabetes mellitus with diabetic polyneuropathy; E11.69 Type 2 diabetes mellitus with other specified complication; E11.65 Type 2 diabetes mellitus with hyperglycemia; M79.7 Fibromyalgia; B99.9 Unspecified infectious disease; E78.5 Hyperlipidemia, unspecified; I10 Essential (primary) hypertension; Z79.4 Long term (current) use of insulin; Z89.422 Acquired absence of other left toe(s); Z89.421 Acquired absence of other right toe(s); Z68.32 Body mass index [BMI] 32.0-32.9, adult; Z79.84 Long term (current) use of oral hypoglycemic drugs
CPT/HCPCS: 82962; 97112-GP; 97116-GP; 97530-GP; G0378; J0360; J1170; J2270; J2405; J2543; J2704; J2765; J3010; J3370; J3490; J7030; J7120; Q0092

== ENCOUNTER 2019-07-19 15:37 | Emergency (ER) | payer OTHER ==
[~2019-07-19] VITALS: Ht 162.6 cm; Wt 77.1 kg
[~2019-07-19 15:37] MED LIST changes: +BACDS PO; +LANTUS100 U/ML SC; +MOT800 PO
[2019-07-19 16:06] VITALS: Ht 162.6 cm; Wt 77.1 kg
[2019-07-19 18:47] VITALS: BP 118/67
== END 2019-07-19 18:40 | disposition home or self-care (01) ==
LOC: ED 15:37
DX: M54.12 Radiculopathy, cervical region (principal); R51 Headache; I50.9 Heart failure, unspecified; I11.0 Hypertensive heart disease with heart failure; M79.7 Fibromyalgia; E11.319 Type 2 diabetes mellitus with unspecified diabetic retinopathy without macular edema; Z90.49 Acquired absence of other specified parts of digestive tract; Z89.421 Acquired absence of other right toe(s)
CPT/HCPCS: J2270; Q0162

== ENCOUNTER 2019-08-11 00:06 | Emergency (ER) | payer OTHER ==
[~2019-08-11] VITALS: Ht 162.6 cm; Wt 79.4 kg
[2019-08-11 00:15] VITALS: Ht 162.6 cm; Wt 79.4 kg
[2019-08-11 01:28] VITALS: BP 148/86
== END 2019-08-11 01:28 | disposition home or self-care (01) ==
LOC: ED 00:06
DX: M75.31 Calcific tendinitis of right shoulder (principal); I11.0 Hypertensive heart disease with heart failure; I50.9 Heart failure, unspecified; M79.7 Fibromyalgia; E11.40 Type 2 diabetes mellitus with diabetic neuropathy, unspecified; Z90.49 Acquired absence of other specified parts of digestive tract; Z89.421 Acquired absence of other right toe(s); Z89.422 Acquired absence of other left toe(s)
CPT/HCPCS: 20552; J2001; J3301; J3490

== ENCOUNTER 2019-08-28 14:49 | Emergency (ER) | payer OTHER ==
[~2019-08-28] VITALS: Ht 167.6 cm; Wt 108.9 kg
[2019-08-28 15:06] VITALS: Ht 167.6 cm; Wt 108.9 kg
[2019-08-28 17:42] LABS: BASOPHIL % 0.2 % (0-2); PLATELET COUNT 234 x10^3mcL (130-400); RED CELL DISTRIBUTION WIDTH 13.5 % (11.5-14.5)
[2019-08-28 17:59] LABS: CALCIUM 9.7 mg/dL (8.5-10.1); CARBON DIOXIDE 27.6 mmol/L (21-32); CREATININE SERUM 1.1 mg/dL (0.6-1.0)
[2019-08-28 18:05] LABS: BILIRUBIN TOTAL 0.62 mg/dL (0.20-1.00); TOTAL PROTEIN, SERUM 7.9 g/dL (6.4-8.2)
[2019-08-28 18:08] LABS: ALBUMIN 3.1 g/dL (3.4-5.0)
[2019-08-28 21:13] VITALS: BP 173/85
== END 2019-08-28 21:13 | disposition home or self-care (01) ==
LOC: ED 14:49
PROVIDERS: Emergency Medicine
DX: R11.2 Nausea with vomiting, unspecified (principal); I11.0 Hypertensive heart disease with heart failure; I50.9 Heart failure, unspecified; E11.9 Type 2 diabetes mellitus without complications; Z98.890 Other specified postprocedural states; Z90.49 Acquired absence of other specified parts of digestive tract
CPT/HCPCS: J0360; J1885; J2270; J2405; J7030

== ENCOUNTER 2019-09-09 22:45 | Emergency (ER) | payer OTHER ==
[~2019-09-09] VITALS: Ht 162.6 cm; Wt 77.1 kg
[2019-09-09 22:53] VITALS: Ht 162.6 cm; Wt 77.1 kg
[2019-09-10 00:55] LABS: BASOPHIL % 0.3 % (0-2); PLATELET COUNT 266 x10^3mcL (130-400); RED CELL DISTRIBUTION WIDTH 12.6 % (11.5-14.5)
[2019-09-10 01:05] LABS: CALCIUM 9.4 mg/dL (8.5-10.1); CARBON DIOXIDE 29.2 mmol/L (21-32); CREATININE SERUM 1.2 mg/dL (0.6-1.0); POTASSIUM SERUM 3.5 mmol/L (3.5-5.1)
[2019-09-10 01:14] LABS: BILIRUBIN TOTAL 0.7 mg/dL (0.20-1.00); TOTAL PROTEIN, SERUM 7.8 g/dL (6.4-8.2)
[2019-09-10 01:15] LABS: ALBUMIN 3.3 g/dL (3.4-5.0)
[2019-09-10 02:03] VITALS: BP 165/88
== END 2019-09-10 03:21 | disposition home or self-care (01) ==
LOC: ED 22:45
PROVIDERS: Emergency Medicine
DX: R11.2 Nausea with vomiting, unspecified (principal); I50.9 Heart failure, unspecified; I10 Essential (primary) hypertension; E11.319 Type 2 diabetes mellitus with unspecified diabetic retinopathy without macular edema; Z90.49 Acquired absence of other specified parts of digestive tract; Z89.422 Acquired absence of other left toe(s)
CPT/HCPCS: J0360; J2405; J7030

== ENCOUNTER 2020-04-15 12:58 | Emergency (ER) | payer OTHER ==
[~2020-04-15] VITALS: Ht 162.6 cm; Wt 77.1 kg
[2020-04-15 13:03] VITALS: Ht 162.6 cm; Wt 77.1 kg
[2020-04-15 14:00] LABS: CALCIUM 9.4 mg/dL (8.5-10.1); CARBON DIOXIDE 27.8 mmol/L (21-32); CREATININE SERUM 1.7 mg/dL (0.6-1.0); POTASSIUM SERUM 4.7 mmol/L (3.5-5.1)
[2020-04-15 14:05] LABS: ALBUMIN 3.2 g/dL (3.4-5.0); BILIRUBIN TOTAL 0.4 mg/dL (0.20-1.00); TOTAL PROTEIN, SERUM 7.3 g/dL (6.4-8.2)
[2020-04-15 14:23] LABS: BASOPHIL % 0.4 % (0-2); PLATELET COUNT 263 x10^3mcL (130-400)
[2020-04-15 15:58] VITALS: BP 164/95
== END 2020-04-15 15:59 | disposition left against medical advice (07) ==
LOC: ED 12:58
PROVIDERS: Emergency Medicine
DX: R07.89 Other chest pain (principal)
CPT/HCPCS: Q0092